=== PATIENT | female | born 1980 | race Hispanic/Latino ===

== ENCOUNTER 2017-12-12 19:17 | Inpatient (IN) | payer SELFPAY ==
[~2017-12-12] VITALS: Ht 165.1 cm; Wt 73.9 kg
[2017-12-12 20:14] LABS: BASOPHILS % (AUTO) 0.8 % (0.0-5.0); EOSINOPHILS % (AUTO) 3.5 % (0.0-8.0); LYMPHOCYTES % (AUTO) 14.5 % (21.0-51.0); MEAN CORPUSCULAR HEMOGLOBIN 18.5 pg (27.0-33.0); MEAN CORPUSCULAR HGB CONC 29.8 g/dL (32.0-36.0); MEAN CORPUSCULAR VOLUME 62.3 fL (79-99); MONOCYTES % (AUTO) 7.3 % (3.0-13.0); NEUTROPHILS % (AUTO) 73.9 % (40.0-77.0); NUCLEATED RED BLOOD CELLS 0.1 % (0.0-0.19); PLATELET COUNT (AUTO) 341 K/uL (130-400); RED BLOOD CELL COUNT(AUTO) 3.54 MIL/uL (4.00-5.50); RED CELL DISTRIBUTION WIDTH 21.5 % (11.0-15.5); WHITE BLOOD COUNT (AUTO) 6.1 K/uL (4.8-10.8)
[2017-12-12 20:23] LABS: CREATININE 0.7 mg/dL (0.5-1.5); POTASSIUM 3.6 mmol/L (3.5-5.1)
[2017-12-12] MEDS ORDERED: ORPHENADRINE CITRATE 30 MG/ML ML ONE (20:52)
[2017-12-12] MEDS ORDERED: IOHEXOL 350 MG/ML 100ML INFUS..BTL IV ONE (21:49)
[2017-12-13] MEDS ORDERED: AZITHROMYCIN 500MG+NS 250ML 250 ML IV ONE (02:13)
[2017-12-13] MEDS ORDERED: CEFTRIAXONE SODIUM 1 GM ONE (02:13)
[2017-12-13] MEDS ORDERED: LACTATED RINGERS 1000ML 1,000 ML IV ONE ×2 (02:14→05:15)
[2017-12-13] MEDS ORDERED: MORPHINE SULFATE 4 MG/1ML SYG ONE ×2 (02:14→07:33)
[2017-12-13 05:43] LABS: EOSINOPHILS % (AUTO) 3.4 % (0.0-8.0); LYMPHOCYTES % (AUTO) 16.4 % (21.0-51.0); MEAN CORPUSCULAR HEMOGLOBIN 17.9 pg (27.0-33.0); MEAN CORPUSCULAR HGB CONC 28.9 g/dL (32.0-36.0); MEAN CORPUSCULAR VOLUME 61.8 fL (79-99); MONOCYTES % (AUTO) 7.9 % (3.0-13.0); NEUTROPHILS % (AUTO) 71.3 % (40.0-77.0); NUCLEATED RED BLOOD CELLS 0.1 % (0.0-0.19); PLATELET COUNT (AUTO) 259 K/uL (130-400); RED BLOOD CELL COUNT(AUTO) 3.25 MIL/uL (4.00-5.50); RED CELL DISTRIBUTION WIDTH 22.1 % (11.0-15.5); WHITE BLOOD COUNT (AUTO) 5.6 K/uL (4.8-10.8)
[2017-12-13 05:51] LABS: CREATININE 0.6 mg/dL (0.5-1.5); HEMATOCRIT 20.1 % (36-48); POTASSIUM 3.7 mmol/L (3.5-5.1)
[2017-12-13 05:55] LABS: ALBUMIN 2.4 g/dL (3.5-5.0); BILIRUBIN,TOTAL 0.3 mg/dL (0.2-1.0); TOTAL PROTEIN, SERUM 6.7 g/dL (6.0-8.3)
[2017-12-13] MEDS ORDERED: SODIUM CHLORIDE 0.9% 500ML 500 ML IV ONE (07:41)
[2017-12-13 09:35] VITALS: BP 102/75
[2017-12-13] MEDS ORDERED: AZITHROMYCIN 500MG+NS 250ML 250 ML IV SCH (10:10)
[2017-12-13] MEDS ORDERED: ONDANSETRON HCL 4 MG/2 ML VIAL IVP PRN (10:15)
[2017-12-13] MEDS ORDERED: MORPHINE SULFATE 4 MG/1ML SYG IVP PRN (10:15)
[2017-12-13] MEDS ORDERED: SODIUM CHLORIDE 0.9% 10 ML VIAL IVP SCH (10:15)
[2017-12-13] MEDS ORDERED: CEFTRIAXONE SODIUM 1 GM IVP SCH (10:15)
[2017-12-13] MEDS: LACTATED RINGERS 1000ML 1,000 ML IV SCH (10:15)
[2017-12-13] MEDS ORDERED: IPRATROPIUM/ALBUTEROL SULFATE 3 ML SOLUTION IH PRN (10:15)
[2017-12-13 11:00] VITALS: BP 115/71
[2017-12-13] MEDS: INSULIN R NPO SS1 SQ SCH ×2 (12:00→16:50)
[2017-12-13] MEDS ORDERED: HYDROMORPHONE 1 MG/1 ML AMP IVP SCH (12:30)
[2017-12-13 16:00] VITALS: BP 129/84
[2017-12-13 19:50] VITALS: BP 132/84
[2017-12-13] MEDS: FAMOTIDINE 20MG TAB 20 MG TAB PO SCH (21:07)
[2017-12-13 23:09] VITALS: BP 162/89
[2017-12-14] MEDS: LACTATED RINGERS 1000ML 1,000 ML IV SCH (01:48)
[2017-12-14] MEDS: ACETAMINOPHEN 325 MG TAB PO PRN ×2 (01:56→11:44)
[2017-12-14] MEDS ORDERED: CEFTRIAXONE SODIUM 1 GM IVP SCH (02:15)
[2017-12-14] MEDS: AZITHROMYCIN 500MG+NS 250ML 250 ML IV SCH ×2 (03:07→09:00)
[2017-12-14 03:45] VITALS: BP 120/70
[2017-12-14 04:43] LABS: BASOPHILS % (AUTO) 0.8 % (0.0-5.0); EOSINOPHILS % (AUTO) 2.1 % (0.0-8.0); LYMPHOCYTES % (AUTO) 11.1 % (21.0-51.0); MEAN CORPUSCULAR HEMOGLOBIN 21.4 pg (27.0-33.0); MEAN CORPUSCULAR HGB CONC 31.5 g/dL (32.0-36.0); MONOCYTES % (AUTO) 7.5 % (3.0-13.0); NEUTROPHILS % (AUTO) 78.5 % (40.0-77.0); NUCLEATED RED BLOOD CELLS 0.1 % (0.0-0.19); PLATELET COUNT (AUTO) 304 K/uL (130-400); RED BLOOD CELL COUNT(AUTO) 4.27 MIL/uL (4.00-5.50); RED CELL DISTRIBUTION WIDTH 27.8 % (11.0-15.5)
[2017-12-14 04:58] LABS: CREATININE 0.7 mg/dL (0.5-1.5); POTASSIUM 3.5 mmol/L (3.5-5.1)
[2017-12-14] MEDS: INSULIN R NPO SS1 SQ SCH ×4 (05:58→18:00)
[2017-12-14 08:00] VITALS: BP 131/73
[2017-12-14] MEDS: FAMOTIDINE 20MG TAB 20 MG TAB PO SCH ×2 (09:48→20:57)
[2017-12-14 11:00] VITALS: BP 131/80
[2017-12-14] MEDS ORDERED: VANCOMYCIN PROTOCOL PER PHARMACY IV SCH (12:45)
[2017-12-14] MEDS ORDERED: COMPOUND IV REFRIGERATED 1 EACH IVSOLN MISC PRN (13:15)
[2017-12-14] MEDS ORDERED: VANCOMYCIN 1.5 GM in SODIUM CHLORIDE 0.9% 250 ML IV SCH (13:30)
[2017-12-14] MEDS: IPRATROPIUM/ALBUTEROL SULFATE 3 ML SOLUTION IH SCH ×2 (13:35→19:26)
[2017-12-14 16:00] VITALS: BP 116/67
[2017-12-14 19:35] VITALS: BP 139/95
[2017-12-14 23:20] VITALS: BP 135/84
[2017-12-15] MEDS: IPRATROPIUM/ALBUTEROL SULFATE 3 ML SOLUTION IH SCH ×4 (00:15→18:50)
[2017-12-15] MEDS: VANCOMYCIN 1.25 GM in SODIUM CHLORIDE 0.9% 250 ML IV SCH ×2 (02:37→13:12)
[2017-12-15 03:30] VITALS: BP 125/74
[2017-12-15] MEDS: INSULIN R NPO SS1 SQ SCH ×2 (06:00)
[2017-12-15 07:23] VITALS: BP 141/72
[2017-12-15 11:00] VITALS: BP 143/64
[2017-12-15] MEDS ORDERED: GUAIFENESIN-CODEINE 5 ML SYRUP PO PRN (11:45)
[2017-12-15] MEDS: FAMOTIDINE 20MG TAB 20 MG TAB PO SCH ×2 (11:46→21:58)
[2017-12-15] MEDS: LEVOFLOXACIN 750 MG/D5W 150 ML 150 ML IV SCH (11:46)
[2017-12-15 11:59] LABS: BASOPHILS % (AUTO) 0.6 % (0.0-5.0); EOSINOPHILS % (AUTO) 2.6 % (0.0-8.0); HEMATOCRIT 30.5 % (36-48); LYMPHOCYTES % (AUTO) 17.8 % (21.0-51.0); MEAN CORPUSCULAR HEMOGLOBIN 20.8 pg (27.0-33.0); MEAN CORPUSCULAR HGB CONC 30.4 g/dL (32.0-36.0); MEAN CORPUSCULAR VOLUME 68.4 fL (79-99); MONOCYTES % (AUTO) 8.1 % (3.0-13.0); NEUTROPHILS % (AUTO) 70.9 % (40.0-77.0); NUCLEATED RED BLOOD CELLS 0.1 % (0.0-0.19); PLATELET COUNT (AUTO) 314 K/uL (130-400); RED BLOOD CELL COUNT(AUTO) 4.45 MIL/uL (4.00-5.50); RED CELL DISTRIBUTION WIDTH 28.3 % (11.0-15.5); WHITE BLOOD COUNT (AUTO) 5.6 K/uL (4.8-10.8)
[2017-12-15 12:15] LABS: CREATININE 0.6 mg/dL (0.5-1.5); POTASSIUM 3.1 mmol/L (3.5-5.1)
[2017-12-15] MEDS: ACETAMINOPHEN 325 MG TAB PO PRN ×2 (13:14→22:03)
[2017-12-15] MEDS ORDERED: LIDOCAINE HCL-MPF 1% 2ML VIAL IVP PRN ×2 (14:30)
[2017-12-15] MEDS ORDERED: POTASSIUM CHLORIDE 20 MEQ ERTAB PO PRN ×2 (14:30)
[2017-12-15] MEDS ORDERED: POTASSIUM CHLORIDE 20MEQ/100ML 100 ML IV PRN (14:30)
[2017-12-15] MEDS ORDERED: POTASSIUM CHLORIDE 10MEQ/100ML 100 ML IV PRN (14:30)
[2017-12-15] MEDS ORDERED: POTASSIUM CHLORIDE 10% ELIXIR 20 MEQ/15 ML UDCUP PO PRN ×2 (14:30)
[2017-12-15 15:05] VITALS: BP 132/84
[2017-12-15 19:00] VITALS: BP_SYST 146; BP_SYST 193; BP_DIAS 71; BP_DIAS 95
[2017-12-15 23:05] VITALS: BP 142/88
[2017-12-16] MEDS: IPRATROPIUM/ALBUTEROL SULFATE 3 ML SOLUTION IH SCH ×5 (00:55→23:00)
[2017-12-16] MEDS: VANCOMYCIN 1.25 GM in SODIUM CHLORIDE 0.9% 250 ML IV SCH (02:45)
[2017-12-16 03:05] VITALS: BP 138/89
[2017-12-16 05:34] LABS: BASOPHILS % (AUTO) 0.5 % (0.0-5.0); EOSINOPHILS % (AUTO) 4.3 % (0.0-8.0); HEMATOCRIT 27.8 % (36-48); LYMPHOCYTES % (AUTO) 15.1 % (21.0-51.0); MEAN CORPUSCULAR HEMOGLOBIN 21.4 pg (27.0-33.0); MEAN CORPUSCULAR HGB CONC 31.6 g/dL (32.0-36.0); MEAN CORPUSCULAR VOLUME 67.8 fL (79-99); MONOCYTES % (AUTO) 7.1 % (3.0-13.0); PLATELET COUNT (AUTO) 343 K/uL (130-400); RED CELL DISTRIBUTION WIDTH 28.5 % (11.0-15.5); WHITE BLOOD COUNT (AUTO) 5.7 K/uL (4.8-10.8)
[2017-12-16 05:52] LABS: ALBUMIN 2.5 g/dL (3.5-5.0); BILIRUBIN,TOTAL 0.5 mg/dL (0.2-1.0); CREATININE 0.6 mg/dL (0.5-1.5); POTASSIUM 3.6 mmol/L (3.5-5.1); TOTAL PROTEIN, SERUM 7.2 g/dL (6.0-8.3)
[2017-12-16 07:30] VITALS: BP 132/79
[2017-12-16] MEDS: FAMOTIDINE 20MG TAB 20 MG TAB PO SCH ×2 (08:58→20:07)
[2017-12-16] MEDS: LEVOFLOXACIN 750 MG/D5W 150 ML 150 ML IV SCH (08:59)
[2017-12-16 11:00] VITALS: BP 120/93
[2017-12-16 16:00] VITALS: BP 135/79
[2017-12-16 20:20] VITALS: BP 129/76
[2017-12-16 23:36] VITALS: BP 129/83
[2017-12-17 03:50] VITALS: BP 130/73
[2017-12-17 04:49] LABS: BASOPHILS % (AUTO) 0.7 % (0.0-5.0); EOSINOPHILS % (AUTO) 5.5 % (0.0-8.0); HEMATOCRIT 29.3 % (36-48); LYMPHOCYTES % (AUTO) 22.5 % (21.0-51.0); MEAN CORPUSCULAR HEMOGLOBIN 21.5 pg (27.0-33.0); MEAN CORPUSCULAR HGB CONC 31.8 g/dL (32.0-36.0); MEAN CORPUSCULAR VOLUME 67.6 fL (79-99); MONOCYTES % (AUTO) 9.1 % (3.0-13.0); NEUTROPHILS % (AUTO) 62.2 % (40.0-77.0); PLATELET COUNT (AUTO) 372 K/uL (130-400); RED BLOOD CELL COUNT(AUTO) 4.33 MIL/uL (4.00-5.50); RED CELL DISTRIBUTION WIDTH 28.5 % (11.0-15.5); WHITE BLOOD COUNT (AUTO) 4.9 K/uL (4.8-10.8)
[2017-12-17 04:59] LABS: CREATININE 0.6 mg/dL (0.5-1.5); POTASSIUM 3.9 mmol/L (3.5-5.1)
[2017-12-17] MEDS: IPRATROPIUM/ALBUTEROL SULFATE 3 ML SOLUTION IH SCH (06:19)
[2017-12-17 08:00] VITALS: BP 144/82
[2017-12-17] MEDS: FAMOTIDINE 20MG TAB 20 MG TAB PO SCH (09:15)
[2017-12-17] MEDS: LEVOFLOXACIN 750 MG/D5W 150 ML 150 ML IV SCH (09:15)
[2017-12-17] MEDS: ACETAMINOPHEN 325 MG TAB PO PRN (09:20)
[2017-12-17 11:50] VITALS: BP 147/69
[2017-12-17] MEDS ORDERED: LEVO500T89 PO (12:38)
[2017-12-17] MEDS ORDERED: FERR324T4 PO (12:38)
== END 2017-12-17 13:40 | disposition home or self-care (01) | DRG 871 ==
LOC: EDH 19:17 → EDHIP 19:18 → 4CH 12-13 09:45 → 4BH 12-15 04:40
PROVIDERS: ADMIT Hospitalist; ATTEND Hospitalist
PROC: 30233N1 Transfusion of Nonautologous Red Blood Cells into Peripheral Vein, Percutaneous Approach (ICD-10-PCS; principal; 2017-12-14)
PROC: 3E0234Z Introduction of Serum, Toxoid and Vaccine into Muscle, Percutaneous Approach (ICD-10-PCS; 2017-12-14)
DX: A41.9 Sepsis, unspecified organism (principal); J18.1 Lobar pneumonia, unspecified organism; E43 Unspecified severe protein-calorie malnutrition; D64.9 Anemia, unspecified; R79.1 Abnormal coagulation profile; B96.89 Other specified bacterial agents as the cause of diseases classified elsewhere; E87.6 Hypokalemia; J40 Bronchitis, not specified as acute or chronic; R16.2 Hepatomegaly with splenomegaly, not elsewhere classified; N85.2 Hypertrophy of uterus; D25.9 Leiomyoma of uterus, unspecified; N83.201 Unspecified ovarian cyst, right side; N92.0 Excessive and frequent menstruation with regular cycle; Z87.01 Personal history of pneumonia (recurrent); Z23 Encounter for immunization; Z68.27 Body mass index [BMI] 27.0-27.9, adult
CPT/HCPCS: 36415; 36430; 71045; 71275; 73030; 76856; 80048; 80053; 80202; 80339; 82270; 82550; 82948; 84484; 85025; 85378; 86850; 86900; 86901; 86922; 87040; 87077; 87186; 87804; 93005; 94640; 94664; A4218; G0008; J0456; J0696; J1170; J1956; J2270; J2405; J3370; J7030; J7040; J7120; P9016; Q2038; Q9967

== ENCOUNTER 2018-06-25 17:22 | Emergency (ER) | payer SELFPAY ==
[~2018-06-25 17:22] MED LIST: FERR324T4 PO; LEVO500T89 PO
== END 2018-06-25 18:29 | disposition home or self-care (01) ==
LOC: EDH 17:22
DX: S69.82XA Other specified injuries of left wrist, hand and finger(s), initial encounter (principal); V89.2XXA Person injured in unspecified motor-vehicle accident, traffic, initial encounter; Y93.89 Activity, other specified; Y92.488 Other paved roadways as the place of occurrence of the external cause; Y99.8 Other external cause status
CPT/HCPCS: 29125; 73130

== ENCOUNTER 2018-07-03 07:34 | Emergency (ER) | payer SELFPAY ==
[2018-07-03] MEDS ORDERED: ONDANSETRON HCL 4 MG/2 ML VIAL ONE (08:25)
[2018-07-03] MEDS ORDERED: KETOROLAC TROMETHAMINE 30MG/ML ONE (08:25)
[2018-07-03 08:47] LABS: BASOPHILS % (AUTO) 0.9 % (0.0-5.0); EOSINOPHILS % (AUTO) 4.2 % (0.0-8.0); HEMATOCRIT 44.2 % (36-48); LYMPHOCYTES % (AUTO) 41.2 % (21.0-51.0); MEAN CORPUSCULAR HEMOGLOBIN 29.4 pg (27.0-33.0); MEAN CORPUSCULAR HGB CONC 33.8 g/dL (32.0-36.0); MEAN CORPUSCULAR VOLUME 87.2 fL (79-99); MONOCYTES % (AUTO) 7.3 % (3.0-13.0); NEUTROPHILS % (AUTO) 46.4 % (40.0-77.0); PLATELET COUNT (AUTO) 182 K/uL (130-400); RED BLOOD CELL COUNT(AUTO) 5.08 MIL/uL (4.00-5.50); RED CELL DISTRIBUTION WIDTH 14.1 % (11.0-15.5); WHITE BLOOD COUNT (AUTO) 4.6 K/uL (4.8-10.8)
[2018-07-03 08:50] LABS: CREATININE 0.5 mg/dL (0.5-1.5); POTASSIUM 3.6 mmol/L (3.5-5.1)
[2018-07-03 08:55] LABS: AMPHET/METH SCREEN,URINE NEGATIVE (NEGATIVE); BARBITURATE SCREEN, URINE NEGATIVE (NEGATIVE); BENZODIAZEPINES SCREEN,URINE NEGATIVE (NEGATIVE); CANNABINOID SCREEN,URINE NEGATIVE (NEGATIVE); COCAINE SCREEN,URINE NEGATIVE (NEGATIVE); OPIATE SCREEN,URINE NEGATIVE (NEGATIVE); PHENCYCLIDINE SCREEN,URINE NEGATIVE (NEGATIVE)
[2018-07-03 08:55] LABS: ALBUMIN 3.5 g/dL (3.5-5.0); BILIRUBIN,DIRECT 0.1 mg/dL (0.0-0.3); BILIRUBIN,TOTAL 0.6 mg/dL (0.2-1.0); TOTAL PROTEIN, SERUM 7.1 g/dL (6.0-8.3)
[2018-07-03 08:59] LABS: APPEARANCE,URINE CLEAR (CLEAR); BILIRUBIN,URINE NEGATIVE (NEGATIVE); COLOR,URINE YELLOW (YELLOW); GLUCOSE, URINE (UA) NEGATIVE (NEGATIVE); KETONES,URINE NEGATIVE (NEGATIVE); LEUKOCYTE ESTERASE ,URINE NEGATIVE (NEGATIVE); NITRATE,URINE NEGATIVE (NEGATIVE); OCCULT BLOOD,URINE LARGE (NEGATIVE); PROTEIN,URINE TRACE mg/dL (NEGATIVE); UROBILINOGEN,URINE 0.2 mg/dL (0.2-1.0)
[2018-07-03 09:00] LABS: BACTERIA,URINE Few /HPF (None Seen); MUCUS,URINE Moderate LPF (None Seen); SQUAMOUS EPITHELIAL CELL,UR Few /HPF (0-2)
[2018-07-03 09:01] LABS: HCG,QUAL RESULT NEGATIVE (NEGATIVE)
[2018-07-03] MEDS ORDERED: PROCHLORPERAZINE EDISYLATE 10 MG/2 ML VIAL ONE (09:49)
== END 2018-07-03 10:45 | disposition home or self-care (01) ==
LOC: EDH 07:34
DX: N93.8 Other specified abnormal uterine and vaginal bleeding (principal)
CPT/HCPCS: 36415; 80048; 80076; 80305; 81001; 81025; 83690; 85025; 96372; 96374; 96375; 99284; J0780; J1885; J2405

== ENCOUNTER 2020-06-12 17:10 | Emergency (ER) | payer BC, OTHER ==
[2020-06-12 17:49] LABS: BASOPHILS % (AUTO) 0.5 % (0.0-5.0); EOSINOPHILS % (AUTO) 2.8 % (0.0-8.0); HEMATOCRIT 38.4 % (36-48); LYMPHOCYTES % (AUTO) 23.6 % (21.0-51.0); MEAN CORPUSCULAR HEMOGLOBIN 26.2 pg (27.0-33.0); MEAN CORPUSCULAR HGB CONC 32.3 g/dL (32.0-36.0); MEAN CORPUSCULAR VOLUME 81.2 fL (79-99); MONOCYTES % (AUTO) 9.1 % (3.0-13.0); NEUTROPHILS % (AUTO) 63.7 % (40.0-77.0); PLATELET COUNT (AUTO) 250 K/uL (130-400); RED BLOOD CELL COUNT(AUTO) 4.73 MIL/uL (4.00-5.50); RED CELL DISTRIBUTION WIDTH 14.1 % (11.0-15.5); WHITE BLOOD COUNT (AUTO) 5.7 K/uL (4.8-10.8)
[2020-06-12 17:54] LABS: APPEARANCE,URINE TURBID (CLEAR); BILIRUBIN,URINE SMALL (NEGATIVE); COLOR,URINE RED (YELLOW); GLUCOSE, URINE (UA) NEGATIVE (NEGATIVE); KETONES,URINE 5 mg/dL (NEGATIVE); LEUKOCYTE ESTERASE ,URINE TRACE (NEGATIVE); NITRATE,URINE POSITIVE (NEGATIVE); OCCULT BLOOD,URINE LARGE (NEGATIVE); PH,URINE 6.5 (5.0-8.0); PROTEIN,URINE >=300 mg/dL (NEGATIVE)
[2020-06-12 18:01] LABS: CREATININE 0.7 mg/dL (0.5-1.5); POTASSIUM 3.9 mmol/L (3.5-5.1)
[2020-06-12 18:04] LABS: HCG,QUAL RESULT NEGATIVE (NEGATIVE)
[2020-06-12 18:05] LABS: ALBUMIN 3.6 g/dL (3.5-5.0); BILIRUBIN,TOTAL 0.2 mg/dL (0.2-1.0); TOTAL PROTEIN, SERUM 7.4 g/dL (6.0-8.3)
[2020-06-12] MEDS ORDERED: CEFTRIAXONE SODIUM 1 GM ONE (18:12)
[2020-06-12 18:14] LABS: RBC,URINE TNTC /HPF (0-1)
[2020-06-12 18:15] LABS: BACTERIA,URINE Rare /HPF (None Seen); WBC,URINE 0-1 /HPF (0-1)
[2020-06-12 18:16] LABS: SQUAMOUS EPITHELIAL CELL,UR None Seen /HPF (0-2)
== END 2020-06-12 18:51 | disposition home or self-care (01) ==
LOC: EDH 17:10
DX: N92.0 Excessive and frequent menstruation with regular cycle (principal); N30.90 Cystitis, unspecified without hematuria; R03.0 Elevated blood-pressure reading, without diagnosis of hypertension
CPT/HCPCS: 36415; 80053; 81001; 81025; 84702; 85025; 86850; 86900; 86901; 87088; 96365; 99284; J0696